=== PATIENT | female | born 1975 | race African-American/Black ===

== ENCOUNTER 2020-03-02 19:25 | Emergency (ER) | payer BC ==
[2020-03-02 19:42] VITALS: BP 153/93; PULSE 109; TEMP 99.8; BMI 17.6
[2020-03-02 22:22] LABS: HCG,QUALITATIVE URINE Negative
[2020-03-02 22:26] LABS: BASO % 0.4 % (0-2.0); EOS % 3.5 % (0-4.5); HEMATOCRIT 37.4 % (32.4-45.2); LYMPH % 29.7 % (8-40); MCH 31.2 pg (25.7-33.7); MCHC 32.1 g/dl (32.0-36.0); MEAN CELL VOLUME 97.3 fl (80-96); MEAN PLT VOLUME 9.5 fl (7.5-11.1); MONO % 4.3 % (3.8-10.2); NEUT % 62.1 % (42.8-82.8); PLATELET COUNT 200 K/MM3 (134-434); RBC 3.84 M/mm3 (3.60-5.2); RDW 11.8 % (11.6-15.6); WHITE BLOOD COUNT 6.2 K/mm3 (4.0-10.8)
[2020-03-02 22:38] LABS: ALBUMIN 4.6 g/dl (3.4-5.0); BILIRUBIN,TOTAL 1.3 mg/dl (0.2-1); CALCIUM 9.6 mg/dl (8.5-10); CREATININE 0.6 mg/dl (0.55-1.3); POTASSIUM 3.5 mmol/L (3.5-5.1); TOT PROT 7.8 g/dl (6.4-8.2)
== END 2020-03-02 23:33 | disposition home or self-care (01) ==
LOC: FER 19:25
DX: R03.0 Elevated blood-pressure reading, without diagnosis of hypertension (principal); E86.0 Dehydration
CPT/HCPCS: 36415; 80053; 81003; 81015; 82550; 84443; 84484; 84703; 85025; 93005; 99284-25

== ENCOUNTER 2022-01-06 09:01 | Inpatient (IN) | payer BC, OTHER ==
[2022-01-06] MEDS ORDERED: LORazepam 2 MG/ML SDV VIAL IVPUSH ONE (09:17)
[2022-01-06 10:05] LABS: VENOUS BASE EXCESS -1.5 mmol/L (-2-2); VENOUS O2 SATURATION 81.3 % (70-80); VENOUS PCO2 21.5 mmHg (38-52); VENOUS PH 7.564 (7.310-7.410)
[2022-01-06 10:22] LABS: URINE APPEARANCE CLEAR; URINE BILIRUBIN NEGATIVE (NEGATIVE); URINE COLOR YELLOW; URINE GLUCOSE (UA) NEGATIVE (NEGATIVE); URINE KETONE NEGATIVE (NEGATIVE); URINE LEUK ESTERASE NEGATIVE (NEGATIVE); URINE NITRITE NEGATIVE (NEGATIVE); URINE PROTEIN NEGATIVE (NEGATIVE); URINE UROBILINOGEN 0.2 mg/dL (0.2-1.0)
[2022-01-06 10:25] LABS: BASO % 0.5 % (0-2.0); EOS % 1.5 % (0-4.5); HEMATOCRIT 33.3 % (32.4-45.2); HEMOGLOBIN 11.7 GM/dL (10.7-15.3); LYMPH % 16.8 % (8-40); MCH 32.7 pg (25.7-33.7); MEAN CELL VOLUME 93.4 fl (80-96); MEAN PLT VOLUME 9.7 fl (7.5-11.1); MONO % 5.7 % (3.8-10.2); NEUT % 75.5 % (42.8-82.8); PLATELET COUNT 152 10^3/uL (134-434); RBC 3.57 M/mm3 (3.60-5.2); RDW 12.9 % (11.6-15.6); WHITE BLOOD COUNT 5.2 K/mm3 (4.0-10.0)
[2022-01-06 10:46] LABS: CALCIUM 9.2 mg/dL (8.5-10.1)
[2022-01-06 10:47] LABS: ALBUMIN 4.1 g/dl (3.4-5.0); BLOOD UREA NITROGEN 9.9 mg/dL (7-18)
[2022-01-06 10:50] LABS: CREATININE 0.8 mg/dL (0.55-1.3)
[2022-01-06 10:52] LABS: TOT PROT 7.8 g/dl (6.4-8.2)
[2022-01-06 10:54] LABS: LACTIC ACID 3.8 mmol/L (0.4-2.0)
[2022-01-06] MEDS ORDERED: SODIUM CHLORIDE 0.9% 500 ML INFUS.BAG IV ONE (11:12)
[2022-01-06] MEDS ORDERED: POTASSIUM CHLORIDE TABS 20 MEQ TABLET.ER (FP) PO ONE ×2 (14:52→14:55)
[2022-01-06] MEDS ORDERED: LORazepam 2 MG/ML SDV VIAL IVPUSH PRN (16:08)
[2022-01-06] MEDS: KCL 10 MEQ IVPB 10 MEQ/100 ML INFUS.BAG IVPB SCH ×3 (17:30→20:42)
[2022-01-06] MEDS ORDERED: KCL 10 MEQ IVPB 10 MEQ/100 ML INFUS.BAG IVPB ONE ×3 (17:57→20:37)
[2022-01-06 20:24] LABS: OPIATES, URI NEGATIVE (NEGATIVE)
[2022-01-06 20:25] LABS: METHADONE, UR NEGATIVE (NEGATIVE); PHENCYCLIDINE,URINE NEGATIVE (NEGATIVE); URINE BARBITURATES NEGATIVE (NEGATIVE); URINE BENZODIAZEPINES NEGATIVE (NEGATIVE)
[2022-01-06 20:27] LABS: COCAINE, UR NEGATIVE (NEGATIVE); URINE AMPHETAMINES NEGATIVE (NEGATIVE)
[2022-01-06] MEDS ORDERED: ACETAMINOPHEN 325 MG TABLET (FP) PO STA (23:02)
[2022-01-06] MEDS ORDERED: ACETAMINOPHEN 325 MG TABLET (FP) ONE (23:05)
[2022-01-07 07:28] LABS: BASO % 0.4 % (0-2.0); EOS % 2.2 % (0-4.5); HEMATOCRIT 31.6 % (32.4-45.2); HEMOGLOBIN 10.6 GM/dL (10.7-15.3); LYMPH % 24.1 % (8-40); MCH 32.1 pg (25.7-33.7); MCHC 33.7 g/dl (32.0-36.0); MEAN CELL VOLUME 95.1 fl (80-96); MEAN PLT VOLUME 9.5 fl (7.5-11.1); MONO % 5.5 % (3.8-10.2); NEUT % 67.8 % (42.8-82.8); PLATELET COUNT 173 10^3/uL (134-434); RBC 3.32 M/mm3 (3.60-5.2); RDW 13.4 % (11.6-15.6); WHITE BLOOD COUNT 5.8 K/mm3 (4.0-10.0)
[2022-01-07 07:58] LABS: ALBUMIN 3.6 g/dl (3.4-5.0); BLOOD UREA NITROGEN 6.3 mg/dL (7-18); CALCIUM 8.9 mg/dL (8.5-10.1)
[2022-01-07 08:01] LABS: CREATININE 0.6 mg/dL (0.55-1.3); PHOSPHOROUS 2.2 mg/dL (2.5-4.9)
[2022-01-07 08:03] LABS: BILIRUBIN,TOTAL 1.5 mg/dL (0.2-1); TOT PROT 6.7 g/dl (6.4-8.2)
[2022-01-07] MEDS ORDERED: NAPH,MB-DB/K PH,MBDB POWDER PACKET PO ONE (08:10)
[2022-01-07] MEDS ORDERED: ESCITALOPRAM OXALATE 10 MG TABLET PO SCH (10:00)
[2022-01-07] MEDS ORDERED: amLODIPine BESYLATE 5 MG TABLET (FP) PO SCH (10:00)
[2022-01-07] MEDS ORDERED: POTASSIUM PHOSPHATE 15 MM in DEXTROSE 5%-WATER - 250 ML IVPB ONE (10:30)
[2022-01-07] MEDS: ENOXAPARIN NA (PORCINE) 40 MG/0.4 ML DISP.SYRIN SQ SCH (10:59)
[2022-01-07] MEDS: FAMOTIDINE 20 MG TABLET PO SCH (10:59)
[2022-01-08 08:22] LABS: HEMATOCRIT 31.9 % (32.4-45.2); MCH 32.7 pg (25.7-33.7); MCHC 34.5 g/dl (32.0-36.0); MEAN CELL VOLUME 94.8 fl (80-96); MEAN PLT VOLUME 9.2 fl (7.5-11.1); PLATELET COUNT 170 10^3/uL (134-434); RBC 3.36 M/mm3 (3.60-5.2); WHITE BLOOD COUNT 6.3 K/mm3 (4.0-10.0)
[2022-01-08 08:50] LABS: ALBUMIN 3.7 g/dl (3.4-5.0)
[2022-01-08 08:52] LABS: CALCIUM 8.9 mg/dL (8.5-10.1)
[2022-01-08 08:53] LABS: BLOOD UREA NITROGEN 11.6 mg/dL (7-18); CREATININE 0.6 mg/dL (0.55-1.3); MAGNESIUM 2.1 mg/dL (1.8-2.4)
[2022-01-08 08:56] LABS: PHOSPHOROUS 2.9 mg/dL (2.5-4.9)
[2022-01-08 08:57] LABS: TOT PROT 6.7 g/dl (6.4-8.2)
[2022-01-08] MEDS ORDERED: ASCORBIC ACID 250 MG TABLET (FP) PO SCH (10:00)
[2022-01-08] MEDS ORDERED: FERROUS SO4 325 MG TABLET (FP) PO SCH (10:00)
[2022-01-08] MEDS: FAMOTIDINE 20 MG TABLET PO SCH (10:19)
[2022-01-08] MEDS: ENOXAPARIN NA (PORCINE) 40 MG/0.4 ML DISP.SYRIN SQ SCH ×2 (10:19→10:23)
[2022-01-08 10:27] VITALS: RESP 16
[2022-01-08 15:29] VITALS: BP 134/83; PULSE 97; TEMP 98.8
[2022-01-09 21:33] VITALS: BMI 17.3
[2022-01-12] MEDS ORDERED: ERGOCALCIFEROL (VIT D2) 50,000 UNIT (1.25 MG) CAPSULE PO SCH (10:00)
== END 2022-01-08 19:53 | disposition home or self-care (01) | DRG 52 ==
LOC: JER 09:01 → JERBED 12:06 → J4W 01-07 02:58
PROVIDERS: ADMIT Internal Medicine; ATTEND Internal Medicine
DX: G93.5 Compression of brain (principal); E87.20 Acidosis, unspecified; I10 Essential (primary) hypertension; R00.0 Tachycardia, unspecified; R10.9 Unspecified abdominal pain; R58 Hemorrhage, not elsewhere classified; R74.01 Elevation of levels of liver transaminase levels; F41.9 Anxiety disorder, unspecified; R56.9 Unspecified convulsions; E44.0 Moderate protein-calorie malnutrition; Z68.1 Body mass index [BMI] 19.9 or less, adult; E87.6 Hypokalemia; K21.9 Gastro-esophageal reflux disease without esophagitis
CPT/HCPCS: 36415; 70450-TC; 70551-TC; 71045-TC-FY; 80053; 80307; 81003; 82248; 82550; 82803; 83605; 83735; 84100; 84443; 84484; 84703; 85025; 85027; 85379; 93005; 93010; 93970-TC; 99285-25; C9803-CS; U0003; U0005

== ENCOUNTER 2022-01-11 12:56 | Inpatient (IN) | payer OTHER ==
[2022-01-11 13:24] VITALS: BMI 16.9
[2022-01-11] MEDS ORDERED: ONDANSETRON 4 MG/2 ML VIAL IVPUSH ONE (14:13)
[2022-01-11] MEDS ORDERED: ONDANSETRON 4 MG/2 ML VIAL ONE (15:30)
[2022-01-11 15:52] LABS: BASO % 0.5 % (0-2.0); EOS % 0.2 % (0-4.5); HEMATOCRIT 34.2 % (32.4-45.2); HEMOGLOBIN 11.7 GM/dL (10.7-15.3); LYMPH % 11.1 % (8-40); MCH 32.6 pg (25.7-33.7); MCHC 34.3 g/dl (32.0-36.0); MEAN PLT VOLUME 9.5 fl (7.5-11.1); MONO % 3.9 % (3.8-10.2); NEUT % 84.3 % (42.8-82.8); PLATELET COUNT 188 10^3/uL (134-434); RDW 13.2 % (11.6-15.6); WHITE BLOOD COUNT 6.5 K/mm3 (4.0-10.0)
[2022-01-11 16:12] LABS: BLOOD UREA NITROGEN 10.2 mg/dL (7-18); CALCIUM 9.6 mg/dL (8.5-10.1)
[2022-01-11 16:13] LABS: ALBUMIN 4.2 g/dl (3.4-5.0)
[2022-01-11 16:15] LABS: CREATININE 0.6 mg/dL (0.55-1.3)
[2022-01-11 16:17] LABS: TOT PROT 7.9 g/dl (6.4-8.2)
[2022-01-11 16:20] LABS: N-TERMINAL BNP 109.5 pg/ml (5-125)
[2022-01-11 16:26] LABS: INR 0.99 (0.83-1.09); PROTHROMBIN TIME (PATIENT) 11.4 SEC (9.7-13.0)
[2022-01-11 16:29] LABS: ACTIVATED PTT 32.9 SECONDS (25.2-36.5)
[2022-01-11] MEDS ORDERED: FAMOTIDINE 20 MG/50 ML IVPB 20 MG/50 ML MG IVPB ONE ×2 (20:56→21:10)
[2022-01-12] MEDS ORDERED: LORazepam 2 MG/ML SDV VIAL IVPUSH ONE (01:53)
[2022-01-12 07:40] LABS: BASO % 0.4 % (0-2.0); EOS % 2.2 % (0-4.5); HEMATOCRIT 31.3 % (32.4-45.2); LYMPH % 23.3 % (8-40); MCH 33.3 pg (25.7-33.7); MCHC 35.1 g/dl (32.0-36.0); MEAN CELL VOLUME 94.8 fl (80-96); MEAN PLT VOLUME 8.9 fl (7.5-11.1); MONO % 6.7 % (3.8-10.2); NEUT % 67.4 % (42.8-82.8); PLATELET COUNT 195 10^3/uL (134-434); RDW 13.3 % (11.6-15.6); WHITE BLOOD COUNT 6.3 K/mm3 (4.0-10.0)
[2022-01-12 07:49] LABS: CALCIUM 8.8 mg/dL (8.5-10.1); MAGNESIUM 2.1 mg/dL (1.8-2.4)
[2022-01-12 07:51] LABS: ALBUMIN 3.7 g/dl (3.4-5.0); BLOOD UREA NITROGEN 9.7 mg/dL (7-18)
[2022-01-12 07:53] LABS: CREATININE 0.7 mg/dL (0.55-1.3)
[2022-01-12 07:54] LABS: PHOSPHOROUS 3.2 mg/dL (2.5-4.9)
[2022-01-12 07:55] LABS: BILIRUBIN,TOTAL 1.6 mg/dL (0.2-1)
[2022-01-12 08:18] LABS: INR 1.06 (0.83-1.09); PROTHROMBIN TIME (PATIENT) 12.2 SEC (9.7-13.0)
[2022-01-12 08:19] LABS: ACTIVATED PTT 30.5 SECONDS (25.2-36.5)
[2022-01-12] MEDS ORDERED: ONDANSETRON 4 MG/2 ML VIAL IVPUSH PRN (08:49)
[2022-01-12] MEDS ORDERED: MAGNESIUM 1GM/D5W - 1 GM/100 ML IVPB IVPB ONE (09:05)
[2022-01-12] MEDS ORDERED: ENOXAPARIN NA (PORCINE) 40 MG/0.4 ML DISP.SYRIN SQ ONE (09:12)
[2022-01-12] MEDS ORDERED: PANTOPRAZOLE SODIUM 40 MG VIAL ONE (09:12)
[2022-01-12] MEDS: ENOXAPARIN NA (PORCINE) 40 MG/0.4 ML DISP.SYRIN SQ SCH ×2 (09:13→09:24)
[2022-01-12] MEDS: PANTOPRAZOLE SODIUM 40 MG VIAL IVPUSH SCH (09:13)
[2022-01-12] MEDS ORDERED: MAGNESIUM SULF 50% (8.12 MEQ/2 ML-1 GM VIAL) IVPB ONE (09:15)
[2022-01-12] MEDS ORDERED: FAMOTIDINE 20 MG TABLET PO SCH (10:00)
[2022-01-12 14:07] LABS: N-TERMINAL BNP 98.6 pg/ml (5-125)
[2022-01-12] MEDS ORDERED: MAG HYDROX/AL HYDROX/SIMETH 30 ML UNIT-DOSE CUP ONE (17:35)
[2022-01-12] MEDS ORDERED: propRANOLol HCL 10 MG TABLET ONE ×2 (17:35→18:43)
[2022-01-12] MEDS: propRANOLol HCL 10 MG TABLET PO SCH (17:35)
[2022-01-12] MEDS: MAG HYDROX/AL HYDROX/SIMETH -MYLANTA- ORAL SUSPENSION PO SCH (18:42)
[2022-01-13] MEDS ORDERED: MAG HYDROX/AL HYDROX/SIMETH 30 ML UNIT-DOSE CUP ONE ×3 (00:08→18:53)
[2022-01-13] MEDS ORDERED: propRANOLol HCL 10 MG TABLET ONE ×3 (00:08→15:51)
[2022-01-13] MEDS: MAG HYDROX/AL HYDROX/SIMETH -MYLANTA- ORAL SUSPENSION PO SCH ×4 (00:20→18:55)
[2022-01-13] MEDS: propRANOLol HCL 10 MG TABLET PO SCH ×3 (00:20→16:00)
[2022-01-13 06:47] LABS: BASO % 0.4 % (0-2.0); EOS % 2.7 % (0-4.5); HEMATOCRIT 33.1 % (32.4-45.2); HEMOGLOBIN 11.1 GM/dL (10.7-15.3); LYMPH % 15.9 % (8-40); MCH 31.9 pg (25.7-33.7); MCHC 33.4 g/dl (32.0-36.0); MEAN CELL VOLUME 95.5 fl (80-96); MEAN PLT VOLUME 9.2 fl (7.5-11.1); MONO % 5.7 % (3.8-10.2); NEUT % 75.3 % (42.8-82.8); PLATELET COUNT 218 10^3/uL (134-434); RBC 3.47 M/mm3 (3.60-5.2); RDW 13.6 % (11.6-15.6)
[2022-01-13 07:03] LABS: ALBUMIN 3.7 g/dl (3.4-5.0); BLOOD UREA NITROGEN 10.7 mg/dL (7-18)
[2022-01-13 07:06] LABS: CREATININE 0.7 mg/dL (0.55-1.3)
[2022-01-13 07:08] LABS: BILIRUBIN,TOTAL 1.1 mg/dL (0.2-1)
[2022-01-13] MEDS ORDERED: PANTOPRAZOLE SODIUM 40 MG VIAL ONE (10:28)
[2022-01-13] MEDS ORDERED: ENOXAPARIN NA (PORCINE) 40 MG/0.4 ML DISP.SYRIN SQ ONE (10:28)
[2022-01-13] MEDS: PANTOPRAZOLE SODIUM 40 MG VIAL IVPUSH SCH (10:45)
[2022-01-13] MEDS: ENOXAPARIN NA (PORCINE) 40 MG/0.4 ML DISP.SYRIN SQ SCH (10:45)
[2022-01-13 10:47] VITALS: RESP 16
[2022-01-13 16:12] VITALS: BP 134/77; PULSE 84; TEMP 98.1
== END 2022-01-13 23:50 | disposition home or self-care (01) | DRG 241 ==
LOC: JER 12:56 → INTOOBSV 17:40 → JERBED 17:40 → OBSVTOIN 20:31 → UNDODISOB 01-13 23:50 → JERBED 01-14
PROVIDERS: ADMIT Internal Medicine; ATTEND Internal Medicine
DX: K29.70 Gastritis, unspecified, without bleeding (principal); F41.9 Anxiety disorder, unspecified; G93.5 Compression of brain; R06.02 Shortness of breath; R07.89 Other chest pain; R10.13 Epigastric pain; R20.2 Paresthesia of skin; R94.5 Abnormal results of liver function studies; R00.0 Tachycardia, unspecified; G40.909 Epilepsy, unspecified, not intractable, without status epilepticus; Z88.0 Allergy status to penicillin
CPT/HCPCS: 0241U-QW; 36415; 71045-TC-FY; 71046-TC-FY; 74176-TC; 80053; 80061; 83690; 83735; 83880; 84100; 84484; 84703; 85025; 85379; 85610; 85730; 93005; 93010; 93306-TC; 93971-TC; 99285-25; G0378

== ENCOUNTER 2022-04-10 10:04 | Emergency (ER) | payer OTHER ==
[2022-04-10 10:25] VITALS: RESP 28; BMI 15.9
[2022-04-10] MEDS ORDERED: LACTATED RINGERS SOLUTION 1000 ML INFUS.BAG IV ONE (11:18)
[2022-04-10 12:00] LABS: BASO % 0.6 % (0-2.0); EOS % 1.9 % (0-4.5); HEMATOCRIT 35.7 % (32.4-45.2); LYMPH % 35.7 % (8-40); MCH 32.3 pg (25.7-33.7); MCHC 33.7 g/dl (32.0-36.0); MEAN CELL VOLUME 95.6 fl (80-96); MEAN PLT VOLUME 10.1 fl (7.5-11.1); MONO % 6.5 % (3.8-10.2); NEUT % 55.3 % (42.8-82.8); PLATELET COUNT 222 10^3/uL (134-434); RBC 3.73 M/mm3 (3.60-5.2); WHITE BLOOD COUNT 4.1 K/mm3 (4.0-10.0)
[2022-04-10 12:29] VITALS: BP 125/83; PULSE 96; TEMP 99
[2022-04-10 12:30] LABS: CALCIUM 9.5 mg/dL (8.5-10.1)
[2022-04-10 12:31] LABS: ALBUMIN 4.2 g/dl (3.4-5.0)
[2022-04-10 12:34] LABS: CREATININE 0.8 mg/dL (0.55-1.3)
[2022-04-10 12:35] LABS: BILIRUBIN,TOTAL 1.1 mg/dL (0.2-1)
== END 2022-04-10 15:08 | disposition home or self-care (01) ==
LOC: JER 10:04
DX: R00.2 Palpitations (principal)
CPT/HCPCS: 0241U-QW; 36415; 76705-TC; 80053; 83690; 84703; 85025; 93005; 93010; 99285-25

== ENCOUNTER 2022-04-17 09:49 | Emergency (ER) | payer OTHER ==
[2022-04-17 10:03] VITALS: BMI 16.2
[2022-04-17] MEDS ORDERED: MAG HYDROX/AL HYDROX/SIMETH -MYLANTA- ORAL SUSPENSION PO ONE (11:33)
[2022-04-17] MEDS ORDERED: FAMOTIDINE 20 MG TABLET PO ONE (11:33)
[2022-04-17] MEDS ORDERED: SUCRALFATE 1 GM/10 ML UNIT DOSE CUPS PO ONE (11:33)
[2022-04-17] MEDS ORDERED: ALPRAZolam 1 MG TABLET PO PRN (11:40)
[2022-04-17] MEDS ORDERED: MAG HYDROX/AL HYDROX/SIMETH 30 ML UNIT-DOSE CUP ONE (12:03)
[2022-04-17] MEDS ORDERED: SUCRALFATE 1 GM TABLET (FP) ONE (12:03)
[2022-04-17] MEDS ORDERED: FAMOTIDINE 20 MG/50 ML IVPB 20 MG/50 ML MG IVPB ONE (12:03)
[2022-04-17] MEDS ORDERED: FAMOTIDINE 20 MG TABLET ONE (12:08)
[2022-04-17 12:49] LABS: BASO % 0.4 % (0-2.0); EOS % 0.3 % (0-4.5); HEMATOCRIT 36.6 % (32.4-45.2); HEMOGLOBIN 12.5 GM/dL (10.7-15.3); LYMPH % 20.2 % (8-40); MCH 32.4 pg (25.7-33.7); MCHC 34.1 g/dl (32.0-36.0); MEAN CELL VOLUME 95.1 fl (80-96); MEAN PLT VOLUME 10.1 fl (7.5-11.1); MONO % 6.2 % (3.8-10.2); NEUT % 72.9 % (42.8-82.8); PLATELET COUNT 164 10^3/uL (134-434); RBC 3.86 M/mm3 (3.60-5.2); WHITE BLOOD COUNT 5.2 K/mm3 (4.0-10.0)
[2022-04-17 12:56] LABS: INR 1.13 (0.83-1.09); PROTHROMBIN TIME (PATIENT) 13.1 SEC (9.7-13.0)
[2022-04-17 12:58] LABS: ACTIVATED PTT 35.9 SECONDS (25.2-36.5)
[2022-04-17 13:00] LABS: HCG,QUALITATIVE URINE NEGATIVE
[2022-04-17 13:13] LABS: PH,URINE 8.5 (5.0-8.0); URINE APPEARANCE CLEAR; URINE BILIRUBIN NEGATIVE (NEGATIVE); URINE COLOR YELLOW; URINE GLUCOSE (UA) NEGATIVE (NEGATIVE); URINE KETONE 1+ (NEGATIVE); URINE LEUK ESTERASE NEGATIVE (NEGATIVE); URINE NITRITE NEGATIVE (NEGATIVE); URINE PROTEIN NEGATIVE (NEGATIVE); URINE UROBILINOGEN 0.2 mg/dL (0.2-1.0)
[2022-04-17 13:18] LABS: ALBUMIN 4.5 g/dl (3.4-5.0); CALCIUM 9.7 mg/dL (8.5-10.1)
[2022-04-17 13:19] LABS: MAGNESIUM 2.3 mg/dL (1.8-2.4)
[2022-04-17 13:21] LABS: CREATININE 0.6 mg/dL (0.55-1.3)
[2022-04-17 13:23] LABS: BILIRUBIN,TOTAL 2.1 mg/dL (0.2-1); TOT PROT 8.5 g/dl (6.4-8.2)
[2022-04-17 16:08] VITALS: BP 114/76; PULSE 101; RESP 20; TEMP 98.9
[2022-04-17] MEDS ORDERED: ALPRAZolam 0.25 MG TABLET ONE (16:22)
== END 2022-04-17 16:24 | disposition home or self-care (01) ==
LOC: JER 09:49
DX: F41.9 Anxiety disorder, unspecified (principal); M54.89 Other dorsalgia
CPT/HCPCS: 0241U-QW; 36415; 71045-TC-FY; 74177-TC; 80053; 81003; 83690; 83735; 84439; 84443; 84484; 84703; 85025; 85610; 85730; 93005; 93010; 99285-25; Q9967

== ENCOUNTER 2022-05-03 17:32 | Emergency (ER) | payer OTHER ==
[2022-05-03 17:40] VITALS: BP 130/80; PULSE 101; RESP 17; TEMP 97.1; BMI 16.9
[2022-05-03 19:09] LABS: BASO % 0.5 % (0-2.0); EOS % 1.8 % (0-4.5); HEMATOCRIT 34.7 % (32.4-45.2); HEMOGLOBIN 12.1 GM/dL (10.7-15.3); MCH 33.2 pg (25.7-33.7); MCHC 34.9 g/dl (32.0-36.0); MEAN CELL VOLUME 95.1 fl (80-96); MEAN PLT VOLUME 8.6 fl (7.5-11.1); MONO % 6.1 % (3.8-10.2); NEUT % 70.6 % (42.8-82.8); PLATELET COUNT 199 10^3/uL (134-434); RBC 3.64 M/mm3 (3.60-5.2); WHITE BLOOD COUNT 5.9 K/mm3 (4.0-10.0)
[2022-05-03 19:16] LABS: INR 1.05 (0.83-1.09); PROTHROMBIN TIME (PATIENT) 12.2 SEC (9.7-13.0)
[2022-05-03 19:19] LABS: ACTIVATED PTT 35.2 SECONDS (25.2-36.5)
[2022-05-03 19:21] LABS: CALCIUM 9.3 mg/dL (8.5-10.1)
[2022-05-03 19:22] LABS: ALBUMIN 4.4 g/dl (3.4-5.0); BLOOD UREA NITROGEN 9.8 mg/dL (7-18)
[2022-05-03 19:24] LABS: CREATININE 0.7 mg/dL (0.55-1.3)
[2022-05-03 19:26] LABS: BILIRUBIN,TOTAL 1.3 mg/dL (0.2-1); TOT PROT 8.5 g/dl (6.4-8.2)
== END 2022-05-03 20:28 | disposition home or self-care (01) ==
LOC: JER 17:32
DX: R42 Dizziness and giddiness (principal)
CPT/HCPCS: 0241U-QW; 36415; 80053; 82962; 83690; 84443; 84484; 84703; 85025; 85610; 85730; 93005; 93010; 99284-25

== ENCOUNTER 2022-06-25 13:52 | Observation (INO) | payer OTHER ==
[2022-06-25 14:18] VITALS: BMI 14.3
[2022-06-25] MEDS ORDERED: FAMOTIDINE 20 MG/50 ML IVPB 20 MG/50 ML MG IVPB ONE ×2 (14:59→15:52)
[2022-06-25] MEDS ORDERED: ONDANSETRON 4 MG/2 ML VIAL IVPUSH ONE (14:59)
[2022-06-25] MEDS ORDERED: SODIUM CHLORIDE 0.9% 500 ML INFUS.BAG IV ONE (15:00)
[2022-06-25] MEDS ORDERED: MAG HYDROX/AL HYDROX/SIMETH 30 ML UNIT-DOSE CUP PO ONE (15:01)
[2022-06-25] MEDS ORDERED: MAG HYDROX/AL HYDROX/SIMETH 30 ML UNIT-DOSE CUP ONE (15:51)
[2022-06-25] MEDS ORDERED: ONDANSETRON 4 MG/2 ML VIAL ONE (15:52)
[2022-06-25] MEDS ORDERED: MAG HYDROX/AL HYDROX/SIMETH 30 ML UNIT-DOSE CUP PO PRN (15:54)
[2022-06-25] MEDS ORDERED: ACETAMINOPHEN 500 MG TABLET (FP) PO PRN (16:34)
[2022-06-25] MEDS ORDERED: LACTATED RINGERS SOLUTION 1,000 ML/1,000 ML INFUS.BAG IV SCH (16:45)
[2022-06-25 16:57] LABS: BASO % 0.4 % (0-2.0); EOS % 0.9 % (0-4.5); HEMOGLOBIN 11.8 GM/dL (10.7-15.3); MCH 32.4 pg (25.7-33.7); MCHC 34.6 g/dl (32.0-36.0); MEAN CELL VOLUME 93.6 fl (80-96); MEAN PLT VOLUME 9.1 fl (7.5-11.1); MONO % 5.7 % (3.8-10.2); PLATELET COUNT 178 10^3/uL (134-434); RBC 3.63 M/mm3 (3.60-5.2); RDW 12.3 % (11.6-15.6); WHITE BLOOD COUNT 6.9 K/mm3 (4.0-10.0)
[2022-06-25 17:51] LABS: CALCIUM 9.5 mg/dL (8.5-10.1)
[2022-06-25 17:52] LABS: ALBUMIN 4.4 g/dl (3.4-5.0)
[2022-06-25 17:54] LABS: CREATININE 0.7 mg/dL (0.55-1.3)
[2022-06-25 17:55] LABS: BILIRUBIN,TOTAL 1.7 mg/dL (0.2-1)
[2022-06-26 08:53] LABS: BASO % 0.5 % (0-2.0); EOS % 2.2 % (0-4.5); HEMATOCRIT 32.7 % (32.4-45.2); HEMOGLOBIN 11.2 GM/dL (10.7-15.3); LYMPH % 18.6 % (8-40); MCH 32.2 pg (25.7-33.7); MCHC 34.3 g/dl (32.0-36.0); MEAN CELL VOLUME 94.1 fl (80-96); MEAN PLT VOLUME 9.2 fl (7.5-11.1); MONO % 5.5 % (3.8-10.2); NEUT % 73.2 % (42.8-82.8); PLATELET COUNT 169 10^3/uL (134-434); RBC 3.48 M/mm3 (3.60-5.2); RDW 12.5 % (11.6-15.6); WHITE BLOOD COUNT 5.8 K/mm3 (4.0-10.0)
[2022-06-26 09:02] LABS: CALCIUM 9.1 mg/dL (8.5-10.1)
[2022-06-26 09:03] LABS: BLOOD UREA NITROGEN 7.5 mg/dL (7-18)
[2022-06-26 09:06] LABS: CREATININE 0.5 mg/dL (0.55-1.3)
[2022-06-26] MEDS: FERROUS SO4 325 MG TABLET (FP) PO SCH (09:54)
[2022-06-26] MEDS: amLODIPine BESYLATE 5 MG TABLET (FP) PO SCH (09:55)
[2022-06-26 10:39] LABS: ALBUMIN 4.1 g/dl (3.4-5.0)
[2022-06-26 10:42] LABS: BILIRUBIN,DIRECT 0.4 mg/dL (0.0-0.2)
[2022-06-26 10:44] LABS: BILIRUBIN,TOTAL 2.4 mg/dL (0.2-1); TOT PROT 7.6 g/dl (6.4-8.2)
[2022-06-26 15:08] VITALS: RESP 18
[2022-06-27 08:37] VITALS: BP 106/75; PULSE 82; TEMP 98.7
[2022-06-27] MEDS: FERROUS SO4 325 MG TABLET (FP) PO SCH (09:39)
[2022-06-27] MEDS: amLODIPine BESYLATE 5 MG TABLET (FP) PO SCH (09:40)
[2022-06-27 13:17] LABS: PHENCYCLIDINE,URINE NEGATIVE (NEGATIVE)
[2022-06-27 13:28] LABS: COCAINE, UR NEGATIVE (NEGATIVE); METHADONE, UR NEGATIVE (NEGATIVE); OPIATES, URI NEGATIVE (NEGATIVE); URINE AMPHETAMINES NEGATIVE (NEGATIVE); URINE BARBITURATES NEGATIVE (NEGATIVE); URINE BENZODIAZEPINES NEGATIVE (NEGATIVE)
[2022-06-27] MEDS ORDERED: ONDANSETRON 4 MG/2 ML VIAL IVPB ONE (14:45)
[2022-06-28] MEDS ORDERED: POLYETHYLENE GLYCOL (HEALTHYLAX) 3350 17 GM PACKET PO SCH (10:00)
== END 2022-06-27 15:30 | disposition home or self-care (01) ==
LOC: JER 13:52 → JERBED 15:54 → J7W 21:12
PROVIDERS: ADMIT Internal Medicine
PROC: 3E033GC Introduction of Other Therapeutic Substance into Peripheral Vein, Percutaneous Approach (ICD-10-PCS; principal; 2022-06-25)
PROC: 3E0337Z Introduction of Electrolytic and Water Balance Substance into Peripheral Vein, Percutaneous Approach (ICD-10-PCS; 2022-06-25)
PROC: 3E033GC Introduction of Other Therapeutic Substance into Peripheral Vein, Percutaneous Approach (ICD-10-PCS; 2022-06-25)
DX: K29.60 Other gastritis without bleeding (principal); R11.2 Nausea with vomiting, unspecified; R10.13 Epigastric pain; G93.5 Compression of brain; R56.9 Unspecified convulsions; F41.9 Anxiety disorder, unspecified; I10 Essential (primary) hypertension; K76.0 Fatty (change of) liver, not elsewhere classified; R13.10 Dysphagia, unspecified; R77.8 Other specified abnormalities of plasma proteins; R63.4 Abnormal weight loss
CPT/HCPCS: 0241U-QW; 36415; 74176-TC; 74181-TC; 80048; 80053; 80076; 80307; 82962; 83690; 84439; 84443; 84703; 85025; 88305-TC; 88342-TC; 93005; 93010; 96361; 96365; 96375; 99285-25; G0378

== ENCOUNTER 2022-08-04 04:26 | Day surgery (SDC) | payer OTHER ==
[2022-07-31 12:45] VITALS: BMI 16.8
[2022-08-04 08:37] VITALS: TEMP 97.5
[2022-08-04 09:06] VITALS: RESP 19
[2022-08-04 09:08] VITALS: BP 127/84; PULSE 78
== END 2022-08-04 09:30 | disposition home or self-care (01) ==
LOC: JASU-ENDO 04:26
PROVIDERS: ATTEND Internal Medicine Gastroenterology
PROC: 0DJD8ZZ Inspection of Lower Intestinal Tract, Via Natural or Artificial Opening Endoscopic (ICD-10-PCS; principal; 2022-08-04 08:00)
DX: Z12.11 Encounter for screening for malignant neoplasm of colon (principal); K64.8 Other hemorrhoids; R10.84 Generalized abdominal pain
CPT/HCPCS: 81025

== ENCOUNTER 2023-07-14 14:00 | Observation (INO) | payer OTHER ==
[2023-07-14] MEDS ORDERED: levETIRAcetam 500 MG/5 ML INJECTION VIAL IVPB ONE (16:03)
[2023-07-14 16:33] LABS: BASO % 0.1 % (0-2.0); EOS % 0.2 % (0-4.5); LYMPH % 7.8 % (8-40); MCH 31.7 pg (25.7-33.7); MCHC 34.3 g/dl (32.0-36.0); MEAN CELL VOLUME 92.3 fl (80-96); MEAN PLT VOLUME 8.6 fl (7.5-11.1); MONO % 3.9 % (3.8-10.2); PLATELET COUNT 167 10^3/uL (134-434); RBC 3.47 M/mm3 (3.60-5.2); RDW 13.5 % (11.6-15.6); WHITE BLOOD COUNT 8.1 K/mm3 (4.0-10.0)
[2023-07-14] MEDS: levETIRAcetam 500 MG/5 ML INJECTION VIAL IVPB ONE (16:37)
[2023-07-14] MEDS: levETIRAcetam 500 MG TABLET (FP) PO ONE (16:58)
[2023-07-14 17:05] LABS: CHLORIDE 107 mmol/L (98-107); SODIUM 136 mmol/L (136-145)
[2023-07-14 17:08] LABS: CALCIUM 8.5 mg/dL (8.5-10.1)
[2023-07-14 17:09] LABS: ALBUMIN 3.9 g/dl (3.4-5.0); BLOOD UREA NITROGEN 7.1 mg/dL (7-18); CO2 25 mmol/L (21-32); GLUCOSE,RANDOM 85 mg/dL (74-106)
[2023-07-14] MEDS ORDERED: ACETAMINOPHEN INJECTION 100 ML IVPB ONE (17:10)
[2023-07-14] MEDS ORDERED: LIDOCAINE 4% PATCH TP ONE (17:11)
[2023-07-14 17:12] LABS: CREATININE 0.6 mg/dL (0.55-1.3); SGOT/AST 47 U/L (15-37); SGPT/ALT 54 U/L (13-61)
[2023-07-14 17:14] LABS: BILIRUBIN,TOTAL 2.1 mg/dL (0.2-1); TOT PROT 7.4 g/dl (6.4-8.2)
[2023-07-14 17:15] LABS: ALK PHOS 110 U/L (45-117)
[2023-07-14 17:17] LABS: ANION GAP 4 mmol/L (4-13); POTASSIUM 2.9 mmol/L (3.5-5.1)
[2023-07-14] MEDS: LIDOCAINE 4% PATCH TP ONE (17:32)
[2023-07-14] MEDS: ACETAMINOPHEN 1000 MG/100 ML BAG IVPB ONE (17:33)
[2023-07-14] MEDS: KCL 20 MEQ PREMIX BAG 20 MEQ/100 ML INFUS.BAG IVPB ONE (17:35)
[2023-07-14] MEDS ORDERED: POTASSIUM CHLORIDE ORAL LIQUID 20 MEQ/15 ML ONE (17:37)
[2023-07-14] MEDS: KCL 10 MEQ IVPB 10 MEQ/100 ML INFUS.BAG IVPB SCH (18:24)
[2023-07-14] MEDS: POTASSIUM CHLORIDE ORAL LIQUID 20 MEQ/15 ML PO ONE (18:46)
[2023-07-14 19:25] LABS: MAGNESIUM 2.2 mg/dL (1.8-2.4)
[2023-07-14] MEDS: LIDOCAINE PATCH REMOVAL MC ONE (21:54)
[2023-07-15 00:03] VITALS: BMI 17.7
[2023-07-15 06:08] VITALS: RESP 18
[2023-07-15] MEDS: POTASSIUM CHLORIDE ORAL LIQUID 20 MEQ/15 ML PO ONE (08:32)
[2023-07-15] MEDS: levETIRAcetam 250 MG TABLET PO SCH (10:14)
[2023-07-15 10:34] LABS: POTASSIUM 3.4 mmol/L (3.5-5.1)
[2023-07-15 10:37] LABS: BLOOD UREA NITROGEN 8.5 mg/dL (7-18)
[2023-07-15 10:40] LABS: CALCIUM 8.6 mg/dL (8.5-10.1)
[2023-07-15 10:41] LABS: CREATININE 0.6 mg/dL (0.55-1.3); MAGNESIUM 2.2 mg/dL (1.8-2.4); PHOSPHOROUS 1.7 mg/dL (2.5-4.9)
[2023-07-15] MEDS: POTASSIUM PHOSPHATE 15 MM in DEXTROSE 5%-WATER - 250 ML IVPB ONE (13:33)
[2023-07-15 18:33] VITALS: BP 116/69; PULSE 100; TEMP 98.1
== END 2023-07-15 21:00 | disposition home or self-care (01) ==
LOC: JER 14:00 → JERBED 17:14 → J5S 20:39
PROVIDERS: ADMIT Internal Medicine; ATTEND Internal Medicine
PROC: 3E033NZ Introduction of Analgesics, Hypnotics, Sedatives into Peripheral Vein, Percutaneous Approach (ICD-10-PCS; principal; 2023-07-14)
PROC: 3E033GC Introduction of Other Therapeutic Substance into Peripheral Vein, Percutaneous Approach (ICD-10-PCS; 2023-07-14)
PROC: 3E0337Z Introduction of Electrolytic and Water Balance Substance into Peripheral Vein, Percutaneous Approach (ICD-10-PCS; 2023-07-14)
DX: G40.909 Epilepsy, unspecified, not intractable, without status epilepticus (principal); I10 Essential (primary) hypertension; E87.6 Hypokalemia; Z91.148 Patient's other noncompliance with medication regimen for other reason; K76.0 Fatty (change of) liver, not elsewhere classified; F41.9 Anxiety disorder, unspecified; R94.5 Abnormal results of liver function studies; K59.00 Constipation, unspecified; Z88.0 Allergy status to penicillin; Z91.041 Radiographic dye allergy status; Z88.8 Allergy status to other drugs, medicaments and biological substances
CPT/HCPCS: 36415; 70450-TC; 72125-TC; 80048; 80053; 80177; 82746; 83735; 84100; 85025; 93005; 93010; 96361; 96365; 96375; 99285-25; G0378; J0131